=== PATIENT | female | born 1990 | race Caucasian/White ===

== ENCOUNTER 2017-06-23 05:55 | Day surgery (SDC) | payer MEDICAID ==
[2017-06-19 17:45] LABS: HCG,QUAL RESULT NEGATIVE (NEGATIVE)
[~2017-06-23] VITALS: Ht 157.5 cm; Wt 63.5 kg
[2017-06-23] MEDS ORDERED: LevALBUTEROL HCL 1.25 MG/0.5 ML *CONC.* VIAL.NEB (XOPENEX CONC.) INH ONE ×2 (06:15→06:35)
[2017-06-23 06:21] LABS: HCG,QUAL RESULT NEGATIVE (NEGATIVE)
[2017-06-23] MEDS ORDERED: fentaNYL CITRATE/PF 100 MCG/2 ML AMP IVP ONE (07:35)
[2017-06-23] MEDS ORDERED: ONDANSETRON HCL 4 MG/2 ML VIAL IVP ONE (07:35)
[2017-06-23] MEDS ORDERED: DEXAMETHASONE SOD PHOSPHATE 4 MG/ML VIAL IVP ONE (07:35)
[2017-06-23] MEDS ORDERED: PROPOFOL 200MG/ 20ML VIAL (DIPRIVAN) IV ONE (07:35)
[2017-06-23] MEDS ORDERED: BUPIVACAINE /EPINEPHRINE/PF 0.25% 30 ML VIAL INJ ONE (07:35)
[2017-06-23] MEDS ORDERED: NS IRRIG SOLN 1000 ML IR ONE (07:35)
[2017-06-23] MEDS ORDERED: SEVOFLURANE 15 MIN GAS INH ONE (07:35)
[2017-06-23] MEDS ORDERED: MIVACURIUM CHLORIDE 20 MG/10 ML VIAL (MIVACRON) INJ ONE (07:35)
[2017-06-23] MEDS ORDERED: MIDAZOLAM HCL 5 MG/5 ML VIAL IVP ONE (07:35)
[2017-06-23] MEDS ORDERED: KETOROLAC TROMETHAMINE 30 MG VIAL IVP PRN ×2 (08:15)
[2017-06-23] MEDS ORDERED: MORPHINE 4 MG/ML INJ. SYRINGE IVP PRN ×3 (08:15)
[2017-06-23] MEDS ORDERED: METOCLOPRAMIDE HCL 10 MG/2 ML VIAL IVP PRN (08:15)
[2017-06-23] MEDS: MORPHINE 4 MG/ML INJ. SYRINGE ONE ×2 (08:32→08:45)
[2017-06-23] MEDS: LR 1,000 ML IV SCH ×2 (09:00→12:10)
[2017-06-23 09:36] VITALS: BP_SYST 114
[2017-06-23] MEDS ORDERED: CEFAZOLIN 1 GM IVPB PREMIX 50 ML IV ONE (09:45)
[2017-06-23] MEDS ORDERED: KETOROLAC TROMETHAMINE 30 MG VIAL ONE (10:17)
== END 2017-06-23 12:10 | disposition home or self-care (01) ==
LOC: SDS 05:55 → SMU 06:11 → SDS 12:10
PROVIDERS: ATTEND Otolaryngology
DX: J35.01 Chronic tonsillitis (principal); J45.20 Mild intermittent asthma, uncomplicated; K21.9 Gastro-esophageal reflux disease without esophagitis; J03.81 Acute recurrent tonsillitis due to other specified organisms
CPT/HCPCS: 84703; 88304; 94640; J0690; J1100; J1885; J2250; J2270; J2405; J2704; J3010; J3490; J7120